=== PATIENT | female | born 2005 | race Caucasian/White ===

== ENCOUNTER 2023-04-02 18:51 | Emergency (ER) | payer OTHER ==
[2023-04-02 19:22] LABS: URINE BILIRUBIN - DIPSTICK Negative (NEGATIVE); URINE BLOOD DIPSTICK Large (NEGATIVE); URINE CLARITY Cloudy; URINE GLUCOSE - DIPSTICK Negative (NEGATIVE); URINE KETONE Negative (NEGATIVE); URINE LEUK ESTERASE Negative (Negative); URINE NITRITE - DIPSTICK Negative (Negative); URINE PH 7.5 (4.5-8.0); URINE PROTEIN - DIPSTICK Negative (NEG-TRACE); URINE UROBILINOGEN - DIPSTICK 0.2 E.U./dL (0.2)
[2023-04-02 19:23] LABS: URINE COLOR Yellow
[2023-04-02 19:24] LABS: URINE RBC 50-100 RBC/hpf (0-5); URINE SQUAMOUS EPITHELIAL CELL FEW EPI/hpf (0-FEW)
[2023-04-02] MEDS ORDERED: IBUPROFEN600 MG PO (21:45)
[2023-04-02 22:17] VITALS: BP 134/90
== END 2023-04-02 22:18 | disposition home or self-care (01) | DRG 605 ==
LOC: ED 18:51
PROVIDERS: Nurse Practitioner
DX: S00.83XA Contusion of other part of head, initial encounter (principal); S80.212A Abrasion, left knee, initial encounter; S80.211A Abrasion, right knee, initial encounter; S80.02XA Contusion of left knee, initial encounter; S80.01XA Contusion of right knee, initial encounter; V49.40XA Driver injured in collision with unspecified motor vehicles in traffic accident, initial encounter